=== PATIENT | female | born 1980 | race Caucasian/White ===

== ENCOUNTER 2024-07-24 18:37 | Observation (INO) | payer OTHER ==
--- NOTE | 2024-07-24 19:37 | ERPHSYRPT ---
- History of Present Illness Time Seen by Provider: 07/24/24 19:20 Source: patient Exam Limitations: no limitations Patient Subjective Stated Complaint: pt here for not feeling well, she states she has sudden onset arm numbness today, she at first states she thought it was a panic attack, but she states the syptoms have not gone away. she denies any injury. no fever Triage Nursing Assessment: pt arrived per , able to get undressed with assist of boyfriend, she is alert, and oriented, no facial drooping, resp easy, skin w/d/p. moves all ext well, no edema noted . follows commands well Physician History: Patient is a 43-year-old female presents to emergency department for evaluation of acute onset arm numbness and facial numbness. Symptoms started just prior to arrival. Patient states she felt dizzy. Symptoms gradually improved. RN reports complete resolution but patient reports patient is still experiencing some facial numbness. No headache. No nausea vomiting or diaphoresis. No associated chest pain shortness of breath or heart palpitations. Symptoms are mild to moderate in intensity. No specific worsening improving factors. Patient denies a history of the same. She voices no other complaints or concerns at this time Portions of this note were created with voice recognition technology. There may be grammatical, spelling, punctuation or sound alike errors Timing/Duration: today Severity: moderate Modifying Factors: Improves With: nothing Associated Symptoms: denies symptoms Allergies/Adverse Reactions: No Known Drug Allergies Allergy (Verified 07/24/24 18:58) Home Medications: No Reportable Medications [No Reported Medications] 07/24/24 [History] Hx Tetanus, Diphtheria Vaccination/Date Given: No Hx Influenza Vaccination/Date Given: No Hx Pneumococcal Vaccination/Date Given: No Immunizations Up to Date: Yes Travel Risk - International Travel Have you traveled outside of the country in past 3 weeks: No - Emerging Infectious Disease Are you exhibiting symptoms associated with any current EIDs: No - Review of Systems Constitutional: No Symptoms, No Fever, No Chills Eyes: No Symptoms Ears, Nose, & Throat: No Symptoms Respiratory: No Symptoms, No Cough, No Dyspnea Cardiac: No Symptoms, No Chest Pain, No Edema, No Syncope Abdominal/Gastrointestinal: No Symptoms, No Abdominal Pain, No Nausea, No Vomiting, No Diarrhea Genitourinary Symptoms: No Symptoms, No Dysuria Musculoskeletal: No Symptoms, No Back Pain, No Neck Pain Skin: No Symptoms, No Rash Neurological: No Symptoms, No Dizziness, No Focal Weakness, No Sensory Changes Psychological: No Symptoms Endocrine: No Symptoms Hematologic/Lymphatic: No Symptoms Immunological/Allergic: No Symptoms All Other Systems: Reviewed and Negative - Past Medical History Pertinent Past Medical History: No Neurological History: No Pertinent History ENT History: No Pertinent History Cardiac History: No Pertinent History Respiratory History: No Pertinent History Endocrine Medical History: No Pertinent History Musculoskeletal History: No Pertinent History GI Medical History: No Pertinent History History: No Pertinent History Psycho-Social History: No Pertinent History Female Reproductive Disorders: Endometriosis, Other Other Medical History: anemia, hx of transfusion. enlarged uterus. endometriosis - Past Surgical History Past Surgical History: Yes Neuro Surgical History: No Pertinent History Cardiac: No Pertinent History Respiratory: No Pertinent History Gastrointestinal: No Pertinent History Genitourinary: No Pertinent History Musculoskeletal: No Pertinent History Female Surgical History: No Pertinent History Other Surgical History: lipoma removed from right side of her back. exploratory laporatomy for endometriosis - Female History Hx Last Menstrual Period: 3 weeks ago Hx Now: No - Social History Smoking Status: Never smoker Exposure to second hand smoke: No Drug Use: none Patient Lives Alone: No - Social Determinants of Health Will the patient participate in the screening: Unable to obtain - Nursing Vital Signs Nursing Vital Signs: Initial Vital Signs Temperature 98.3 F 07/24/24 19:01 Pulse Rate 68 07/24/24 19:01 Respiratory Rate 18 07/24/24 19:01 O2 Sat by Pulse Oximetry 98 07/24/24 19:01 Pain Scale Pain Intensity 1 - Physical Exam General Appearance: no apparent distress, alert Eye Exam: PERRL/EOMI, eyes nml inspection Ears, Nose, Throat Exam: normal ENT inspection, TMs normal, pharynx normal, moist mucous membranes Neck Exam: normal inspection, non-tender, supple, full range of motion Respiratory Exam: normal breath sounds, lungs clear, airway intact, No respiratory distress Cardiovascular Exam: regular rate/rhythm, normal heart sounds, normal peripheral pulses Gastrointestinal/Abdomen Exam: soft, normal bowel sounds, No tenderness, No mass Back Exam: normal inspection, normal range of motion, No CVA tenderness, No vertebral tenderness Extremity Exam: normal inspection, normal range of motion, pelvis stable Neurologic Exam: alert, oriented x 3, cooperative, normal mood/affect, sensation nml, No motor deficits Skin Exam: normal color, warm, dry, No rash Lymphatic Exam: No adenopathy SpO2 Interpretation: normal SpO2: 98 O2 Delivery: Room Air - Course Nursing assessment & vital signs reviewed: Yes EKG Interpreted by Me: RATE (66), Sinus Rhythm, NORMAL AXIS, NORMAL INTERVALS, NORMAL QRS - CT Exams Head CT Interpretation: Tele-radiologist Report (Normal head) Ordered Tests: Active Orders 24 hr Category Date Time Status Sizing Sponger STAT Care 07/24/24 19:33 Active EKG-ER Only STAT Care 07/24/24 19:32 Active IV Insertion STAT Care 07/24/24 19:32 Active Pulse Oximetry (ED) STAT Care 07/24/24 19:32 Active HEAD WITHOUT CONTRAST [CT] Stat Exams 07/24/24 19:33 Taken CBC W DIFF Stat Lab 07/24/24 19:45 Completed CMP Stat Lab 07/24/24 19:45 Completed MAGNESIUM Stat Lab 07/24/24 19:45 Completed POCT GLUCOSE Stat Lab 07/24/24 18:58 Completed TROPONIN Q4H Lab 07/24/24 19:45 Completed TROPONIN Q4H Lab 07/24/24 23:45 Ordered TROPONIN Q4H Lab 07/25/24 03:45 Ordered TSH [TSH, 3RD Generation] Stat Lab 07/24/24 19:45 Completed UA W/RFX UR CULTURE Stat Lab 07/24/24 22:22 Completed Transfer Order Routine Transfer 07/24/24 Ordered Medication Summary Generic Name Dose Route Start Last Admin Trade Name Freq PRN Reason Stop Dose Admin Sodium Chloride 1,000 mls @ 100 mls/hr 07/24/24 19:45 07/24/24 19:57 Sodium Chloride 0.9% 1000 Ml IV 08/23/24 19:44 100 mls/hr .Q10H JUSTICE Administration Lab/Rad Data: Laboratory Result Diagrams 07/24/24 19:45 07/24/24 19:45 Laboratory Results 07/24/24 07/24/24 07/24/24 Range/Units 22:22 19:45 19:45 WBC (3.98-10.04) x10^3/uL RBC (3.93-5.22) x10^6/uL Hgb (11.2-15.7) g/dL Hct (34.1-44.9) % MCV (79.4-94.8) fL MCH (25.6-32.2) pg MCHC (32.2-35.5) g/dL RDW (11.7-14.4) % Plt Count (182-369) x10^3/uL MPV (9.4-12.3) fL Gran % (34.0-71.1) % Immature Gran % (Auto) (0.001-0.429) % Nucleat RBC Rel Count (0.00-0.2) % Eos # (Auto) (0.04-0.36) x10^3/uL Immature Gran # (Auto) (0.001-0.031) x10^3u/L Absolute Lymphs (auto) (1.18-3.74) x10^3/uL Absolute Monos (auto) (0.24-0.86) x10^3/uL Absolute Nucleated RBC (0.00-0.012) x10^3u/L Lymphocytes % (19.3-51.7) % Monocytes % (4.7-12.5) % Eosinophils % (0.7-5.8) % Basophils % (0.1-1.2) % Absolute Granulocytes (1.56-6.13) x10^3/uL Basophils # (0.01-0.08) x10^3/uL Sodium (135-145) mmol/L Potassium (3.5-5.1) mmol/L Chloride (98-107) mmol/L Carbon Dioxide (22-30) mmol/L Anion Gap (5-15) MEQ/L BUN (7-17) mg/dL Creatinine (0.52-1.04) mg/dL Estimated GFR ML/MIN Glucose (74-106) mg/dL POC Glucometer (74 to 106) mg/dL Calcium (8.4-10.2) mg/dL Magnesium (1.6-2.3) mg/dL Total Bilirubin (0.2-1.3) mg/dL AST (14-36) U/L ALT (0-35) U/L Alkaline Phosphatase (38-126) U/L Troponin I < 0.012 (0.000-0.033) ng/mL Serum Total Protein (6.3-8.2) g/dL Albumin (3.5-5.0) g/dL TSH 3rd Generation 2.848 (0.470-4.680) mIU/L Urine Color Yellow (Yellow) Urine Appearance Clear (Clear) Urine pH 7.0 (4.6-8.0) Ur Specific [place] 1.020 (1.005-1.030) Urine Protein Negative (Negative) Urine Glucose (UA) Negative (Negative) mg/dL Urine Ketones 15 A (Negative) Urine Blood Negative (Negative) Urine Nitrite Negative (Negative) Urine Bilirubin Negative (Negative) Urine Urobilinogen 0.2 (0.2) mg/dL Ur Leukocyte Esterase Negative (Negative) U Hyaline Cast (Auto) NONE SEEN (0-2) /LPF Urine Microscopic RBC 0-2 (0-5) /HPF Urine Microscopic WBC 0-2 (0-5) /HPF Ur Epithelial Cells None Seen (None Seen) /HPF Urine Bacteria None Seen (None Seen) /HPF Urine Culture Reflexed NO (NO) Slides for Path Review 07/24/24 07/24/24 07/24/24 Range/Units 19:45 19:45 18:58 WBC 5.6 (3.98-10.04) x10^3/uL RBC 3.95 (3.93-5.22) x10^6/uL Hgb 7.3 L (11.2-15.7) g/dL Hct 26.6 L (34.1-44.9) % MCV 67.3 L (79.4-94.8) fL MCH 18.5 L (25.6-32.2) pg MCHC 27.4 L (32.2-35.5) g/dL RDW 17.1 H (11.7-14.4) % Plt Count 287 (182-369) x10^3/uL MPV 10.3 (9.4-12.3) fL Gran % 62.5 (34.0-71.1) % Immature Gran % (Auto) 0.2 (0.001-0.429) % Nucleat RBC Rel Count 0.0 (0.00-0.2) % Eos # (Auto) 0.18 (0.04-0.36) x10^3/uL Immature Gran # (Auto) 0.01 (0.001-0.031) x10^3u/L Absolute Lymphs (auto) 1.45 (1.18-3.74) x10^3/uL Absolute Monos (auto) 0.39 (0.24-0.86) x10^3/uL Absolute Nucleated RBC 0.00 (0.00-0.012) x10^3u/L Lymphocytes % 26.0 (19.3-51.7) % Monocytes % 7.0 (4.7-12.5) % Eosinophils % 3.2 (0.7-5.8) % Basophils % 1.1 (0.1-1.2) % Absolute Granulocytes 3.48 (1.56-6.13) x10^3/uL Basophils # 0.06 (0.01-0.08) x10^3/uL Sodium 137 (135-145) mmol/L Potassium 4.0 (3.5-5.1) mmol/L Chloride 104 (98-107) mmol/L Carbon Dioxide 26 (22-30) mmol/L Anion Gap 10.3 (5-15) MEQ/L BUN 13 (7-17) mg/dL Creatinine 0.80 (0.52-1.04) mg/dL Estimated GFR 93.1 ML/MIN Glucose 99 (74-106) mg/dL POC Glucometer 101 (74 to 106) mg/dL Calcium 9.3 (8.4-10.2) mg/dL Magnesium 1.9 (1.6-2.3) mg/dL Total Bilirubin 0.50 (0.2-1.3) mg/dL AST 18 (14-36) U/L ALT 11 (0-35) U/L Alkaline Phosphatase 51 (38-126) U/L Troponin I (0.000-0.033) ng/mL Serum Total Protein 6.9 (6.3-8.2) g/dL Albumin 4.1 (3.5-5.0) g/dL TSH 3rd Generation (0.470-4.680) mIU/L Urine Color (Yellow) Urine Appearance (Clear) Urine pH (4.6-8.0) Ur Specific [place] (1.005-1.030) Urine Protein (Negative) Urine Glucose (UA) (Negative) mg/dL Urine Ketones (Negative) Urine Blood (Negative) Urine Nitrite (Negative) Urine Bilirubin (Negative) Urine Urobilinogen (0.2) mg/dL Ur Leukocyte Esterase (Negative) U Hyaline Cast (Auto) (0-2) /LPF Urine Microscopic RBC (0-5) /HPF Urine Microscopic WBC (0-5) /HPF Ur Epithelial Cells (None Seen) /HPF Urine Bacteria (None Seen) /HPF Urine Culture Reflexed (NO) Slides for Path Review YES - Progress Progress: improved Progress Note: 43-year-old female presents the emergency department for evaluation of bilateral arm weakness facial paresthesias. Neurologic exam normal. Laboratory workup reveals a microcytic anemia at 7.3. CT head negative for acute intracranial pathology case discussed with neurologist who advised admission for MRI brain and C-spine. Management discussed with hospitalist Dr. Espitia who accepts admission at 10:39 PM. Plan of care discussed with patient. She agrees to admi ssion at [facility] for further evaluation and treatment. Portions of this note were created with voice recognition technology. There may be grammatical, spelling, punctuation or sound alike errors 07/24/24 22:23 Complexity of problem addressed is moderate acute complicated. No critical care time. Complex of data reviewed and analyzed is extensive. Test ordered test reviewed results analyzed and correlated clinically with history and physical exam. Risk of complication and or risk of morbidity/mortality patient management is high. Patient requires hospitalization for further evaluation and treatment. Vital stable time spent to admit patient approximately 20 minutes. Plan of care established for shared decision making. No social determinants of health present to impede follow-up. Portions of this note were created with voice recognition technology. There may be grammatical, spelling, punctuation or sound alike errors Counseled pt/family regarding: lab results, diagnosis, need for follow-up, rad results - Departure Departure Disposition: Home Clinical Impression: Microcytic anemia, Weakness, Numbness, TIA (transient ischemic attack) Condition: Stable Critical Care Time: No Referrals: TACO BACH [Primary Care Provider] - Follow up/PCP as directed
[2024-07-24] MEDS ORDERED: Sodium Chloride 0.9% 1000 ML 1,000 ML ONE (19:45)
[2024-07-24 19:50] LABS: Absolute Neutrophil Ct (ANC) 3.48 x10^3/uL (1.56-6.13); BASOPHIL % 1.1 % (0.1-1.2); Basophil (Absolute #) 0.06 x10^3/uL (0.01-0.08); Eosinophil % 3.2 % (0.7-5.8); Eosinophil (Absolute #) 0.18 x10^3/uL (0.04-0.36); Hematocrit 26.6 % (34.1-44.9); Hemoglobin 7.3 g/dL (11.2-15.7); IMMATURE GRAN # 0.01 x10^3u/L (0.001-0.031); IMMATURE GRAN % 0.2 % (0.001-0.429); Lymphocyte (Absolute #) 1.45 x10^3/uL (1.18-3.74); Mean Cell Volume 67.3 fL (79.4-94.8); Mean Corpuscular Hemoglobin 18.5 pg (25.6-32.2); Mean Corpuscular Hgb Concent. 27.4 g/dL (32.2-35.5); Mean Platelet Volume 10.3 fL (9.4-12.3); Monocyte (Absolute #) 0.39 x10^3/uL (0.24-0.86); Neutrophil % 62.5 % (34.0-71.1); Platelet Count 287 x10^3/uL (182-369); Red Blood Count 3.95 x10^6/uL (3.93-5.22); Red Cell Distribution Width 17.1 % (11.7-14.4); White Blood Count 5.6 x10^3/uL (3.98-10.04)
[2024-07-24] MEDS: Sodium Chloride 0.9% 1000 ML 1,000 ML IV SCH (19:57)
[2024-07-24 20:11] LABS: ALBUMIN 4.1 g/dL (3.5-5.0); ANION GAP 10.3 MEQ/L (5-15); BILIRUBIN,TOTAL 0.5 mg/dL (0.2-1.3); Calcium 9.3 mg/dL (8.4-10.2); Creatinine 1 0.8 mg/dL (0.52-1.04); EST GLOMERULAR FILTRATION RATE 93.1 ML/MIN; MAGNESIUM 1.9 mg/dL (1.6-2.3); Total Protein 6.9 g/dL (6.3-8.2)
[2024-07-24 20:24] LABS: Slide Review 1 YES
[2024-07-24 22:32] LABS: Appearance Clear (Clear); Bacteria None Seen /HPF (None Seen); Bilirubin Negative (Negative); Blood Negative (Negative); Epithelial Cells None Seen /HPF (None Seen); Glucose, Urine Negative (Negative); Hyaline Casts NONE SEEN /LPF (0-2); Ketones 15 (Negative); Leukocyte Esterase Negative (Negative); Nitrite Negative (Negative); Protein,Urine Dip Negative (Negative); RBC 0-2 /HPF (0-5); Urobilinogen 0.2 mg/dL (0.2); WBC 0-2 /HPF (0-5)
[2024-07-24 22:34] LABS: ADD URINE CULTURE? NO (NO)
[2024-07-24 23:37] LABS: ABO TYPING A; RH TYPING NEGATIVE
[2024-07-24 23:44] LABS: Antibody Screen POSITIVE (NEGATIVE)
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
[2024-07-25 05:31] LABS: Hematocrit 27.8 % (34.1-44.9); Hemoglobin 7.6 g/dL (11.2-15.7); Mean Cell Volume 67.3 fL (79.4-94.8); Mean Corpuscular Hemoglobin 18.4 pg (25.6-32.2); Mean Corpuscular Hgb Concent. 27.3 g/dL (32.2-35.5); Mean Platelet Volume 11.2 fL (9.4-12.3); Platelet Count 319 x10^3/uL (182-369); Red Blood Count 4.13 x10^6/uL (3.93-5.22); Red Cell Distribution Width 17.5 % (11.7-14.4); White Blood Count 5.2 x10^3/uL (3.98-10.04)
[2024-07-25 06:07] LABS: ANION GAP 11.4 MEQ/L (5-15); Calcium 9.1 mg/dL (8.4-10.2); Creatinine 1 0.78 mg/dL (0.52-1.04); Potassium 3.6 mmol/L (3.5-5.1)
[2024-07-25 06:28] LABS: Iron 19 ug/dL (37-170); Iron Saturation 4 % (20-39); TIBC 439 ug/dL (265-462)
[2024-07-25] MEDS: TYLENOL 325 MG PO PRN (07:48)
--- NOTE | 2024-07-25 08:41 | XRAY ---
Indication: Dizziness. Arm numbness. Multiple contiguous axial images obtained through the head without contrast. Comparison: None Normal appearing brain parenchyma, ventricles, and bony calvarium. Visualized paranasal sinuses and mastoid air cells are clear. Impression: Normal CT head without contrast exam.
[2024-07-25 11:17] LABS: Folate (Folic Acid) 9.55 ng/mL (2.76 - >20)
--- NOTE | 2024-07-25 11:46 | XRAY ---
Indication: TIA. Bilateral arm and facial numbness. Slurred speech. Spinal AVM. Normal CT head exam one day earlier. Sagittal, coronal, and axial MRI brain without contrast using T1, T2, FLAIR, diffusion, and ADC sequences. Comparison: None Ventriculosulcal pattern appears symmetric. No acute intracranial hemorrhage, abnormal extra-axial fluid collection, or mass effect. Diffusion images are negative for restricted signal. Fourth ventricle is midline without hydrocephalus. 7/8 cranial nerve complex bilaterally symmetric. Normal flow-void signal within the major intracerebral circulation. Normal appearing cranial cervical junction and sella turcica. Visualized paranasal sinuses and mastoid air cells are clear. Impression: Normal MRI brain without contrast exam.
--- NOTE | 2024-07-25 12:04 | XRAY ---
Indication: TIA. Bilateral arm and face numbness. Slurred speech. Spinal AVM. Multi-slab 3-D [id number] MRA venetie ira of [place] performed. Comparison: None Distal internal carotid arteries are bilaterally symmetric without critical stenosis, obstruction, or AV malformation. Normal carotid terminus with normal branching A1 and M1 segments bilaterally. Visualized distal anterior and middle cerebral arteries are normal in MRA appearance bilaterally. Incidental origin right posterior cerebral artery. Posterior circulation demonstrates normal MRA appearance to the distal left/right vertebral, basilar, left/right posterior cerebral, left/right superior cerebellar, and left/right anterior inferior cerebellar arteries. Impression: Normal MRA venetie ira of [place] without contrast exam.
--- NOTE | 2024-07-25 12:10 | XRAY ---
Indication: TIA. Bilateral arm and face numbness. Slurred speech. Spinal AVM. Conventional contrast enhanced MRA neck performed using 10 cc Dotarem contrast. Comparison: None Both visualized carotid bulb and origins left/right external carotid arteries demonstrates minimal eccentric arteriosclerotic disease. Remaining visualized common carotid, left/right internal carotid, and left/right vertebral arteries are normal in MRA appearance. Impression: Minimal arteriosclerotic disease in both carotid bulb and both proximal external carotid arteries. Remaining MRA neck with contrast exam is negative.
[2024-07-25] MEDS: Venofer 100 MG/5 ML*** 200 MG in Sodium Chloride 0.9% 100 ML IV SCH (13:20)
[2024-07-25 13:37] LABS: Hematocrit 29.1 % (34.1-44.9); Hemoglobin 7.8 g/dL (11.2-15.7)
[2024-07-25 18:52] LABS: Hematocrit 26.5 % (34.1-44.9); Hemoglobin 7.2 g/dL (11.2-15.7)
[2024-07-26 04:41] VITALS: RESP 16
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
[2024-07-26 05:31] LABS: Absolute Neutrophil Ct (ANC) 3.84 x10^3/uL (1.56-6.13); BASOPHIL % 1.4 % (0.1-1.2); Basophil (Absolute #) 0.08 x10^3/uL (0.01-0.08); Eosinophil % 3.8 % (0.7-5.8); Eosinophil (Absolute #) 0.21 x10^3/uL (0.04-0.36); Hematocrit 27.9 % (34.1-44.9); Hemoglobin 7.5 g/dL (11.2-15.7); IMMATURE GRAN # 0.02 x10^3u/L (0.001-0.031); IMMATURE GRAN % 0.4 % (0.001-0.429); Lymphocyte (Absolute #) 1.12 x10^3/uL (1.18-3.74); Mean Cell Volume 67.9 fL (79.4-94.8); Mean Corpuscular Hemoglobin 18.2 pg (25.6-32.2); Mean Corpuscular Hgb Concent. 26.9 g/dL (32.2-35.5); Mean Platelet Volume 11.4 fL (9.4-12.3); Monocyte (Absolute #) 0.33 x10^3/uL (0.24-0.86); Monocytes % 5.9 % (4.7-12.5); Neutrophil % 68.5 % (34.0-71.1); Platelet Count 296 x10^3/uL (182-369); Red Blood Count 4.11 x10^6/uL (3.93-5.22); Red Cell Distribution Width 17.7 % (11.7-14.4); White Blood Count 5.6 x10^3/uL (3.98-10.04)
[2024-07-26 05:51] LABS: ANION GAP 13.4 MEQ/L (5-15); BILIRUBIN,TOTAL 0.3 mg/dL (0.2-1.3); Creatinine 1 0.76 mg/dL (0.52-1.04); Potassium 3.9 mmol/L (3.5-5.1)
[2024-07-26 07:30] LABS: Slide Review 1 YES
[2024-07-26 07:47] VITALS: PULSE 67
--- NOTE | 2024-07-26 12:17 | XRAY ---
Indication: TIA. Spinal AVM. Normal CT head, MRI brain, and MRA brain. Sagittal and axial MRI cervical spine performed using pre and post T1 and T2-weighted sequences. 10 cc Dotarem contrast used. Comparison: None Sagittal images demonstrates mild cervical lordotic reversal centered at C3-C4, positional versus paraspinal spasm. C2-C7 degenerative disc desiccation signal with minimal disc space narrowing. No acute fracture, suspicious bony lesions, or abnormal bone marrow signal. Spinal cord is normal in course and caliber without signal abnormality. Normal appearing craniocervical junction. Axial images at C2-C4 disc levels are negative for disc herniation, spinal canal, or foraminal stenosis. At C4-C5 level, there is minimal broad-based disc bulge minimally effacing thecal sac. Also left foraminal stenosis and right foraminal narrowing due to degenerative uncovertebral spurring. No focal disc herniation or canal stenosis. At C5-C6 level, there is minimal broad-based disc bulge minimally effacing thecal sac. Bilateral foraminal narrowing due to uncovertebral spurring. No focal disc herniation or canal stenosis. At C6-C7 level, there is minimal broad-based disc bulge minimally effacing thecal sac. Right foraminal stenosis due to uncovertebral spurring. No focal disc herniation or canal stenosis. The C7-T1 level is unremarkable. Following gadolinium, there is no abnormal intra or extra thecal enhancement.. No abnormal bony enhancement either. Impression: 1. Cervical lordotic reversal and minimal multilevel degenerative disc disease detailed level by level. 2. Remaining MRI cervical spine with contrast exam is negative.
[2024-07-26 12:25] VITALS: BP 103/60; TEMP 98.3; O2SAT 99
--- NOTE | 2024-07-26 12:48 | XRAY ---
Indication: TIA. Spinal AVM. Normal CT head, MRI brain, and MRA brain. Sagittal and axial MRI thoracic spine performed using pre and post T1 and T2 weighted sequences. 10 cc Dotarem contrast used. Comparison: None MRI cervical spine reported separately. Sagittal MRI thoracic spine images demonstrates normal alignment/kyphosis. Mild T3-T4, T8-T10, and T11-T12 degenerative disc desiccation signal with minimal disc space narrowing. 5 mm T8 and 4 mm T12 vertebral hemangiomas. No acute fracture, suspicious bony lesions, or abnormal bone marrow signal. Spinal cord is normal in course and caliber without signal abnormality. Conus medullaris terminates distal to thoracolumbar junction, not included in [id number]. Axial images demonstrates minimal broad-based right paracentral disc bulge at T3-T4 and T11-T12 levels. Tiny central disc bulge at T8-T10 levels. Otherwise negative for disc herniation or spinal canal stenosis. Following gadolinium, there is no abnormal intra or extra thecal enhancement. No abnormal bony enhancement either. Impression: 1. Minimal T3-T4, T8-T10, and T11-T12 degenerative disc disease as detailed. 2. Incidental tiny T8/T12 vertebral hemangioma. 3. Remaining MRI thoracic spine with contrast exam is negative.
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
--- NOTE | 2024-07-26 13:40 | PCM.DCORD ---
- Discharge Disposition: Home, Self-Care Condition: Stable Prescriptions: New Aspirin 81 gm Chew [Baby Aspirin 81 mg Chew] 81 mg PO DAILY 30 Days #30 tab.chew Ferrous Sulfate 325 mg [Feosol 325 mg] 325 mg PO DAILY 30 Days #30 tablet Additional Instructions: Follow up with Dr. Jones [facility] for anemia follow up -Repeat CBC next week with PCP Follow up with: TACO BACH [Primary Care Provider] - 07/30/24 2:45 pm REA OSWALD DO [NON-STAFF PHY W/O PRIVILEGES] - 1 Week
== END 2024-07-26 14:55 | disposition home or self-care (01) ==
LOC: ED 18:37 → MED SURG 23:01
PROVIDERS: ADMIT Internal Medicine; ATTEND Internal Medicine
DX: G45.9 Transient cerebral ischemic attack, unspecified (principal); D50.9 Iron deficiency anemia, unspecified; R20.0 Anesthesia of skin
CPT/HCPCS: 36000; 36415; 70450; 70544; 70549; 70551; 72156; 72157; 80048; 80053; 81001; 82607; 82746; 82947; 83540; 83550; 83735; 84443; 84484; 85014; 85018; 85025; 85027; 86850; 86900; 86901; 93005; 93041; 93306; 94760; 99285; Q3014; 93268; J1756; A9270-GY; G0378